=== PATIENT | female | born 1965 | race Caucasian/White ===

== ENCOUNTER 2017-09-23 11:44 | Inpatient (IN) | payer MEDICARE, MEDICAID ==
[~2017-09-23] VITALS: Ht 160 cm; Wt 79.8 kg
[2017-09-23 11:45] VITALS: BP 172/76
[2017-09-23 12:00] LABS: ABSOLUTE BASOPHILS 0.1 thou/uL (0.0-0.2); ABSOLUTE EOSINOPHILS 0.2 thou/uL (0.0-0.7); ABSOLUTE LYMPHOCYTES 2.3 thou/uL (0.8-5.3); ABSOLUTE MONOCYTES 0.8 thou/uL (0.0-1.2); ABSOLUTE NEUTROPHILS 7.2 thou/uL (1.6-8.1); BASOPHILS 1.3 %; EOSINOPHILS 1.5 %; HEMATOCRIT 42.2 % (37.0-47.0); HEMOGLOBIN 14.5 gm/dL (12.0-15.0); LYMPHOCYTES 21.4 %; MCH 30.4 pg (26.0-34.0); MCHC 34.3 g/dL (28.0-37.0); MCV 88.5 fL (80.0-100.0); MONOCYTES 7.3 %; MPV 9.2 fl. (7.2-11.1); NUCLEATED RBCS 0 /100WBC; PLATELET COUNT* 275 thou/uL (150-400); POLYS 68.5 %; RBC 4.76 mil/uL (4.20-5.00); RDW-CV 13.2 % (10.5-14.5); WBC 10.5 thou/uL (4.0-11.0)
[2017-09-23] MEDS ORDERED: CYMBALTA60 MG PO (12:01)
[2017-09-23] MEDS ORDERED: NOVOLOG100 UNIT/1 SUBQ (12:01)
[2017-09-23] MEDS ORDERED: AMLODIPINE BESY10 MG PO (12:01)
[2017-09-23] MEDS ORDERED: LEVEMIR SUBQ (12:01)
[2017-09-23] MEDS ORDERED: FENOFIBRATE160 MG PO (12:02)
[2017-09-23] MEDS ORDERED: E.E.S. 400400 MG PO (12:02)
[2017-09-23] MEDS ORDERED: ZESTRIL20 MG PO (12:02)
[2017-09-23] MEDS ORDERED: PROTONIX40 M1 PO (12:03)
[2017-09-23] MEDS ORDERED: REGLAN 10 MG TA10 MG PO (12:03)
[2017-09-23] MEDS ORDERED: CRESTOR40 MG PO (12:04)
[2017-09-23] MEDS ORDERED: ACTIGALL300 MG PO (12:05)
[2017-09-23] MEDS ORDERED: FLOVENT HFA 4444 MCG INH (12:05)
[2017-09-23] MEDS ORDERED: TRANSDERM-SCOP1 EACH TRANSDERM (12:05)
[2017-09-23] MEDS ORDERED: GLUCAGEN1 M2 IM (12:06)
[2017-09-23] MEDS ORDERED: PHENERGAN 25 MG25 M1 PO (12:06)
[2017-09-23] MEDS ORDERED: VENTOLIN HFA 1818 GM INH (12:07)
--- NOTE | 2017-09-23 12:07 | NUR ---
PT REFUSED TO LIE ON BACK TO DO EKG
[2017-09-23 12:10] LABS: APTT 24.5 Seconds (25.0-31.3); PROTIME 9.6 Seconds (9.20-11.50)
[2017-09-23 12:57] LABS: ANION GAP 8 mmol/L (7-16); BUN 22 mg/dL (7-18); CALCIUM 9.6 mg/dL (8.5-10.1); CHLORIDE 100 mmol/L (98-107); CO2 30 mmol/L (21-32); CREATININE 0.8 mg/dL (0.6-1.3); GLUCOSE 233 mg/dL (70-99); POTASSIUM 4.4 mmol/L (3.5-5.1); SODIUM 138 mmol/L (136-145)
[2017-09-23 13:11] LABS: ALKALINE PHOSPHATASE 249 U/L (46-116); LIPASE 45 U/L (73-393); SGOT 22 U/L (15-37); SGPT 18 U/L (30-65); TOTAL BILIRUBIN 0.4 mg/dL (<0.1-1.0); TOTAL PROTEIN 7.2 g/dL (6.4-8.2); TROPONIN-I LEVEL <0.06 ng/mL (<0.06)
--- NOTE | 2017-09-23 14:34 | NUR ---
UNABLE TO OBTAIN URINE SAMPLE, DUE TO PT STATUS. DR. VASQUEZ NOTIFIED
[2017-09-23 14:35] VITALS: BP 130/60
[2017-09-23 15:00] VITALS: BP 137/62; BP 138/60
--- NOTE | 2017-09-23 15:54 | NUR ---
PT ARRIVED TO THE FLOOR AT 1450. PT ORIENTED TO THE UNIT AND SERVICES, SAFETY TRAINER APPLIED AND VS OBTAINED. PT REPORTS N/V FOR LAST 3 DAY AND HAS C/O ABD PAIN THAT SHE RATES AT A 8 ON 0 TO 10 PAIN SCALE. PT REFUSED TO TRANSFER FROM [facility] TO BED BECAUSE SHE MIGHT GET SICK. PT VSS AND TRACING NSR ON THE MONITOR. NURSING WILL CONTINUE TO MONITOR FOR SAFTEY AND COMFORT.
--- NOTE | 2017-09-23 16:03 | EKG ---
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
--- NOTE | 2017-09-23 18:12 | NUR ---
PT REMAINS A&O, C/O ABD PAIN EFFECTIVELY REDUCED TO A TOLERABLE LEVEL WITH PRN PAIN MEDICATIONS. VSS AND TRACING SR ON THE MONITOR. PT DENIES BEING DIZZY OR HAVING ANY CHEST PAIN. NURSING WILL CONTINUE TO MONITOR.
[2017-09-24] VITALS: BP 154/69
[2017-09-24 04:00] VITALS: BP 142/70
--- NOTE | 2017-09-24 07:10 | NUR ---
PATIENT ADANCED TO [facility] TO SEE THIS AM. NO COMPLAINTS OF PAIN, DISCOMFORT OR SOA.
[2017-09-24 07:30] VITALS: BP 163/66
[2017-09-24 12:00] VITALS: BP 172/81
--- NOTE | 2017-09-24 15:23 | NUR ---
CM SPOKE TO THE PATIENT TO DISCUSS HOME SITUATION, DISCHARGE PLANNING, AND TO INFORM OF THE ROLE OF CM. PATIENT ALERT, AND ORIENTED. PATIENT INFORMS THAT SHE RESIDES AT [facility]. THE STAFF AT THE FACILITY ASSIST HER WITH BATHING AND DRESSING, AND SHE IS ABLE TO FEED HERSELF. PATIENT USES A WHEELCHAIR FOR MOBILITY. PATIENT INFORMS THAT SHE PLANS TO RETURN TO [facility] AT D/C. CM WILL REMAIN AVAILABLE TO ASSIST AND FOLLOW NEEDED.
[2017-09-24 16:00] VITALS: BP 120/51
[2017-09-24 20:00] VITALS: BP 180/99
--- NOTE | 2017-09-24 21:15 | NUR ---
RECEIVED REPORT AND ASSUMED CARE AT 0700. VSS. CARDIAC MONITORING IN PLACE. PT REPORTS PAIN IN HER BACK. PRN MEDICATION ADMIN PER ORDERS. ASSESSMENT COMPLETED CHARTED. DISCUSSED PLAN OF CARE WITH PT, VERBALIZED UNDERSTANDING. PT UP WITH SBA TO BSC. ON RA. PT DIET ADVANCED TO SOLID AT LUNCH TIME. HOURLY ROUNDING COMPLETED, ALL NEEDS MET. BED IN LOWEST POSITION, CALL LIGHT WITHIN REACH. NURSING WILL CONTINUE TO MONITOR
[2017-09-25] VITALS: BP 114/54
[2017-09-25 04:00] VITALS: BP 106/52
--- NOTE | 2017-09-25 04:48 | NUR ---
PT CARE ASSUMED AFTER REPORT. ASSESSMENT COMPLETE. SR ON MONITOR. DENIES PAIN. IVF INFUSING. PT NOT COOPERATIVE WITH CARE. KEPT EYES CLOSED DURING ASSESSMENT AND WOULD ONLY ANSWER YES/NO QUESTIONS. REFUSED TO SIT UP TO SWALLOW HER PILLS. NO NAUSEA/VOMITING OBSERVED OR REPORTED. FALL PRECAUTIONS IN PLACE INCLUDING BED ALARM. CALL LIGHT IN REACH. BED IN LOWEST POSITION. SLOW TO PROGRESS TOWARDS GOALS.
[2017-09-25 08:20] VITALS: BP 150/62
--- NOTE | 2017-09-25 08:55 | CON ---
[address] [address] CONSULTATION Name: BAY MAZA Room: [address] IN .R.#: [id number] Admission: 09/23/17 Attend Phys: Catherine Puga Discharge: Date of : 63 Report #: [id number] THIS REPORT FOR: //name// CC: Misa Ball DATE OF SERVICE: 09/24/2017 REASON FOR CONSULT: Intermittent nausea and vomiting. HISTORY OF PRESENT ILLNESS: This is a 51-year-old female with a history of diabetes, which appears to be poorly controlled. She reports that she has intermittent nausea and vomiting. She claims that she had upper and lower endoscopy 6 months ago at [facility] and she was told that she has some colon polyps. She does not recall what the upper GI findings were. The patient was presented to hospital since she was persistent vomiting for the past 3 days. Reviewing her labs, her alkaline phosphatase is elevated, but liver enzymes otherwise normal. PAST MEDICAL HISTORY: Significant for her diabetes mellitus, hypertension, GERD, dyslipidemia, fibromyalgia, tubal ligation, COPD, arthritis, primary biliary cirrhosis. ALLERGIES: No known drug allergy. MEDICATIONS: Please refer to hospital [facility] SOCIAL HISTORY: The patient denies tobacco or alcohol use. FAMILY HISTORY: Noncontributory. PHYSICAL EXAMINATION: VITAL SIGNS: Reveals blood pressure of 163/66, respirations 17, pulse 73, temperature 98.9. LUNGS: Clear. CARDIOVASCULAR: Regular. ABDOMEN: Soft, nontender, nondistended. Bowel sounds are positive. NEUROLOGIC: The patient is alert and oriented x 3. There is no focal neurologic deficit. LABORATORY DATA: Revealed sodium of 138, potassium 4.4, BUN is 22, creatinine 0.8, glucose is 233, AST is 22, ALT 18, alkaline phosphatase 249, total bilirubin is 0.4. Lipase is 45. Albumin is 3.0, INR is 1.0 with WBC of 10.5 and hemoglobin of 14.5, platelet is 275. IMAGING: CT of abdomen and pelvis was obtained. [place] [address] CONSULTATION Name: BAY MAZA Room: [address] IN [facility]#: [id number] Admission: 09/23/17 Attend Phys: Catherine Puga Discharge: Date of : 63 Report #: [id number] or pelvic abnormalities noted. Spleen, pancreas and adrenal glands appeared normal. There was no evidence of bile duct dilatation, but there was mild fatty infiltration of the liver. ASSESSMENT AND PLAN: The patient with nausea, vomiting who reports that she has had endoscopic evaluation at [facility] and we will request the records. Given her diabetes being poorly controlled, she may have diabetic gastroparesis or hyperglycemic nausea and vomiting. We will go ahead and schedule her for gastric emptying test on Tuesday as we are awaiting her records. Meanwhile, I will go ahead and continue the scopolamine patch and antiemetics. We will also continue her on PPI. The patient is also on Shoaib 300 mg p.o. b.i.d. for primary biliary cirrhosis, which she will continue. <ELECTRONICALLY SIGNED> By: Angelina Myers MD 09/25/17 0855 [id number] [id number] Myers MD /nt
--- NOTE | 2017-09-25 10:38 | NUR ---
RECEIVED REPORT FROM AMARILIS AND ASSUMED CARE OF PT @ 7662.PT IS A/OX4,VSS,TRACING SR ON THE MONITOR.LUNG SOUNDS ARE CLEAR DIMINSHED.LAST BM WAS YESTERDAY.IV RIGHT HAND PATENT WITH NS RUNNING @ 100.PT IS CALM AND COOPERATIVE BUT FLAT AFFECT.COVERING FACE WHILE LAYING IN BED.PT C/O PAIN IN KNEES 6/10-MEDICATIONS GIVEN.PT IS UP WITH TWO ASSIST.PT LEFT RESTING IN BED WITH CALL LIGHT AND FALL PRECAUTION SIN PLACE. WILL CONTINUE TO MONITOR.
[2017-09-25 11:11] VITALS: BP 136/66
[2017-09-25 16:03] VITALS: BP 128/57
--- NOTE | 2017-09-25 18:14 | NUR ---
VSS,CARDIAC MONITORING IN PLACE WITH NO CANGES.PT REMAINS ON ROOM AIR.PT PAIN MANAGED WELL WIH PAIN MEDICATIONS.IVF INUSING PER ORDERS.HOURL ROUNDING COMPLETED FOR PT SAFETY.CALL LIGHT AND FALL PRECAUTIONS IN PLACE.WILL CONITINUE TO MONITOR FOR DURATION OF SHIFT.PT HAS BEEN SLEEPING MOST OF SHIFT WITH A COUPLE OF VISITORS.
[2017-09-25 20:00] VITALS: BP 121/61
[2017-09-26] VITALS: BP 136/65
[2017-09-26 02:09] LABS: URINE BILIRUBIN NEGATIVE (Negative); URINE BLOOD NEGATIVE (Negative); URINE CLARITY CLEAR; URINE COLOR YELLOW; URINE GLUCOSE-RANDOM 3+ (Negative); URINE KETONES NEGATIVE (Negative); URINE LEUKOCYTES-REFLEX NEGATIVE (Negative); URINE NITRITE-REFLEX NEGATIVE (Negative); URINE PROTEIN 2+ (Negative); URINE SPECIFIC GRAVITY >= 1.030 (1.005-1.030); URINE UROBILINOGEN 0.2 E.U./dl (0.2-1.0)
[2017-09-26 02:35] LABS: CASTS None Seen /LPF (None Seen); CRYSTALS None Seen /LPF (None Seen); MUCUS 0-3 Light strn/LPF (None Seen); SQUAMOUS 4-10 Moderate /LPF (0-3); URINE RBC 0-2 Rare /HPF (0-2); URINE WBC-REFLEX 0-5 Rare /HPF (0-5)
[2017-09-26 04:00] VITALS: BP 114/58
--- NOTE | 2017-09-26 05:28 | NUR ---
PT CARE ASSUMED AFTER REPORT. ASSESSMENT COMPLETE. SR ON MONITOR. IVF INFUSING. DENIES PAIN. UP WITH X2 ASSIST TO BSC. FALL PRECAUTIONS IN PLACE INCLUDING BED ALARM. CALL LIGHT IN EACH. BED IN LOWEST POSITION. NO N/V OBSERVED OR REPORTED BY PT. PROGRESSING TOWARDS GOALS.
[2017-09-26 08:05] VITALS: BP 116/53
--- NOTE | 2017-09-26 10:39 | NUR ---
RECEIVED REPORT FROM AMARILIS AND ASSUMED CARE OF PT @ 4019.PT IS A/O,VSS,TRACING SR ON THE MONITOR.LUNG SOUNDS ARE CLEAR.LAST BM WAS YESTERDAY.IV RIGHT HAND PATENT WITH FLUIDS RUNNING @ 100ML/HR.PT IS CALM AND COOPERATIVE BUT SLEEPY.NO C/O PAIN AT TIME OF ASSESSMENT.PT IS UP WITH TWO TO BSC AND CHAIR.PT LEFT RESTING IN BED WITH CALL LIGHT AND FALL PRECAUTIONS IN PLACE.WILL CONTINUE TO MONITOR.
[2017-09-26 11:30] VITALS: BP 124/54
--- NOTE | 2017-09-26 13:55 | NUR ---
Spoke with Germania at [facility], confirmed that they are able to accept Pt back at dc. No dc today.
[2017-09-26 16:00] VITALS: BP 130/75
--- NOTE | 2017-09-26 18:43 | NUR ---
VSS,CARDIAC MONITORING IN PLACE WITH NO CHANGES.PT REMAINS ON ROOM AIR.PT HAS DENIED PAIN THIS SHIFT.IVF INFUSING PER ORDERS.PT PROGRESSING TOWARDS GOALS.PT TO BE NPO AT MIDNIGHT FOR SCHEDULED GI PROCEDURE IN AM.PT INFORMED OF PLAN OF CARE AND COMMUNICATES UNDERSTANDING.PT SAT UP IN CHAIR FOR SEVERAL HOURS TODAY.HOURLY ROUNDING COMPLETED FOR PT SAFETY.CALL LIGHT AND FALL PRECAUTIONS IN PLACE.WILL CONTINUE TO MONITOR FOR DURATION OF SHIFT.
[2017-09-26 20:00] VITALS: BP 111/49
[2017-09-27] VITALS: BP 130/64
[2017-09-27 04:00] VITALS: BP 116/58
--- NOTE | 2017-09-27 05:40 | NUR ---
ASSUMED CARE AROUND 1930. PT A/OX4, FLAT, RESTED MOST THE NIGHT. TELE MONITOR TRACING SR. VSS. DENIES ANY PAIN. ON ROOM AIR. IVF INFUSING ORDERED. DENIED NAUSEA THIS SHIFT. NPO SINCE MIDNIGHT FOR GASTRIC EMPTYING TEST TODAY. UP WITH PIVOT AND ASSISTX2 TO BSC THIS AM. USING CALL LIGHT APPROPRIATELY. BED IN LOWEST POSITION, BEDALARM IN PLACE, WILL CONTINUE WITH PLAN OF CARE.
[2017-09-27 08:05] VITALS: BP 154/59
--- NOTE | 2017-09-27 10:32 | NUR ---
RECEIVED REPORT FROM SARWAT AND ASSUMED CARE OF PT @ 2704.PT IS A/O,VSS,TRACING SR ON THE MONITOR.LUNG SOUNDS CLEAR DIMINSHED.LAST BM WAS 09/25/17.IV RIGHT HAND PATENT AND SALINE LOCKED.PT IS CALM AND COOPERATIVE WITH NO C/O PAIN AT TIME OF ASSESSMENT.PT IS LEFT RESTING IN BED WITH CALL LIGHT AND FALL PRECAUTIONS IN PLACE.GASTRIC EMPTYING TEST IN PROCESS.NPO STATUS MAINTAINED.MORNING MEDICATIONS HELD.WILL CONTINUE TO MONIOR.
[2017-09-27 11:30] VITALS: BP 138/70
--- NOTE | 2017-09-27 13:19 | NUR ---
Pt discharging back to [facility] today. Faxed dc orders. Chart copied. Nurse report number provided, . Updated Pt's family. Facility to picking belt operator between 3-330pm
[2017-09-27] MEDS ORDERED: TYLENOL EXTRA500 MG PO (13:34)
[2017-09-27 13:35] VITALS: BP 154/59
--- NOTE | 2017-09-27 15:41 | NUR ---
GET COMPLETE.PT OK FOR D/C BACK TO FACILITY.PAPERWORK COMPLETED PER ORDERS AND COPIED.IV REMOVED.HEART MONITOR REMOVED AND RETURNED TO NURSING STATION.ALL PERSONAL BELONGINGS PACKED AND TAKEN WITH PT.REPORT CALLED TO KAREN AT [facility].PT WHEELED OUT BY WHEEL CHAIR NICOLASA FROM [facility].
== END 2017-09-27 15:35 | DRG 74 ==
LOC: M.ERS 11:44 → M.TBA-ER 13:50 → M.2W 13:50
PROVIDERS: Family Medicine; ADMIT Internal Medicine
DX: E11.43 Type 2 diabetes mellitus with diabetic autonomic (poly)neuropathy (principal); E44.1 Mild protein-calorie malnutrition; K31.84 Gastroparesis; M79.7 Fibromyalgia; E78.5 Hyperlipidemia, unspecified; K21.9 Gastro-esophageal reflux disease without esophagitis; I10 Essential (primary) hypertension; F17.210 Nicotine dependence, cigarettes, uncomplicated; J44.9 Chronic obstructive pulmonary disease, unspecified; M19.90 Unspecified osteoarthritis, unspecified site; Z68.31 Body mass index [BMI] 31.0-31.9, adult; Z79.4 Long term (current) use of insulin; Z79.899 Other long term (current) drug therapy